=== PATIENT | male | born 1975 | race Caucasian/White ===

== ENCOUNTER 2018-12-09 10:49 | Emergency (ER) | payer OTHER ==
[~2018-12-09] VITALS: Ht 182.9 cm; Wt 90.2 kg
[2018-12-09 10:53] VITALS: BP 169/109
[2018-12-09 12:53] LABS: MICROSCOPIC NOT IND
--- NOTE | 2018-12-09 12:59 | NUR ---
RESULTS IN. PT CLEARED FOR DISCHARGE FROM [facility] [place]. PT AMBULATING WELL UPON DEPARTURE.
[2018-12-09 13:00] LABS: CULTURE INDICATED? NO
== END 2018-12-09 13:53 | disposition home or self-care (01) ==
LOC: ED 12:57
DX: N43.2 Other hydrocele (principal)
CPT/HCPCS: 76870; 81003; 99284